=== PATIENT | female | born 1985 | race Caucasian/White ===

== ENCOUNTER 2017-03-08 14:47 | Emergency (ER) | payer BC, OTHER ==
[~2017-03-08] VITALS: Ht 170.2 cm; Wt 59.1 kg
[~2017-03-08 14:47] MED LIST: ACCUTANE20 MG PO; ADDERAL; BACTRIM 400-801 TAB; CLINDAMYCIN HC150 MG PO; CONCERTA; CONCERTA27 MG PO; JUNEL PO; NORCO 7.5/325 T1 TAB PO; PERCOCET 5/3251 TAB PO; PROZAC PO; SEROQUEL PO; SEROQUEL200 M2 PO; TYLENOL W/CODEI1 TA PO; ZOFRAN ODT4 MG/UDTAB PO; [UNRECOGNIZED DRUG - OTHER]
[2017-03-08] MEDS ORDERED: ATOMOXETINE HCL60 MG PO (14:53)
[2017-03-08] MEDS ORDERED: VALACYCLOVIR1000 M1 PO (14:54)
[2017-03-08] MEDS ORDERED: FLUOXETINE HCL20 M2 PO (14:54)
[2017-03-08] MEDS ORDERED: LO LOESTRIN FE1 EAC1 PO (14:54)
[2017-03-08] MEDS ORDERED: PROZAC20 M3 PO (15:05)
[2017-03-08 15:41] LABS: BASO % 0.9 % (0-2); BASO ABSOLUTE COUNT 0.1 tho/cmm (0.0-0.2); EOS % 2.2 % (0-7); EOSINOPHIL ABSOLUTE COUNT 0.1 tho/cmm (0.0-0.7); HCT-HEMATOCRIT 34.5 % (34.0-49.0); HGB-HEMOGLOBIN 12.1 gm/dl (12.0-15.5); IMMATURE GRANULOCYTES ABSOLUTE 0.01 tho/cmm (0-0.03); IMMATURE GRANULOCYTES PERCENT 0.2 % (0-0.3); LYMPH % 36.2 % (20-45); LYMPH ABSOLUTE COUNT 2.1 tho/cmm (0.8-4.5); MCH (MEAN CORPUSCULAR HGB) 31.2 pg (28.0-32.0); MCHC MEAN CORPUSCULAR HGB CONC 35.1 % (32.0-36.0); MCV (MEAN CELL VOLUME) 88.9 fl (82.0-96.0); MEAN PLATELET VOLUME 8.6 cmc (9.4-12.4); MONO % 7.5 % (0-12); MONOCYTE ABSOLUTE COUNT 0.4 tho/cmm (0.0-1.2); NEUTROPHIL ABSOLUTE COUNT 3.1 tho/cmm (1.6-8.0); NEUTROPHIL-AUTOMATED 3.1 tho/cmm (1.6-8.0); PLATELET COUNT 395 tho/cmm (150-450); RED BLOOD COUNT 3.88 mil/cmm (4.00-5.20); RED CELL DISTRIBUTION WIDTH 11.6 % (12.4-16.4); WHITE BLOOD COUNT 5.9 tho/cmm (4.0-10.0)
[2017-03-08 16:01] LABS: ANION GAP 8 mmol/L (0-20); BLOOD UREA NITROGEN 12 mg/dl (6-24); CALCIUM 8.2 mg/dl (8.5-10.5); CARBON DIOXIDE-VENOUS 28 mmol/L (22-32); CHLORIDE 107 mmol/l (96-110); CREATININE 0.79 mg/dl (0.50-1.10); GLUCOSE 101 mg/dL (70-110); SODIUM 139 mmol/L (135-145); eGFR VALUE FOR BLACK >90 mL/Min
== END 2017-03-08 17:09 ==
LOC: EDMED 14:47
PROVIDERS: Emergency Medicine
DX: R07.89 Other chest pain (principal); F90.9 Attention-deficit hyperactivity disorder, unspecified type; F32.9 Major depressive disorder, single episode, unspecified; Z88.0 Allergy status to penicillin; Z79.899 Other long term (current) drug therapy